=== PATIENT | female | born 1990 | race African-American/Black ===

== ENCOUNTER 2024-05-19 17:50 | Emergency (ER) | payer BC, OTHER ==
[2024-05-19] MEDS ORDERED: NA CHLORIDE 0.9% 1,000 ML ONE (19:30)
[2024-05-19] MEDS ORDERED: FAMOTIDINE 20 MG/2 ML VIAL IV ONE (19:30)
[2024-05-19] MEDS ORDERED: ONDANSETRON 4 MG/2 ML VIAL ONE (19:30)
--- NOTE | 2024-05-19 20:24 | RAD REPORT ---
EXAM DESCRIPTION: US - Abdomen Exam Limited - 05/19/2024 8:10 pm CLINICAL HISTORY: ABD PAIN COMPARISON: <Comparisons> FINDINGS: The gallbladder demonstrates no gallstones. No pericholecystic fluid or gallbladder wall t hickening. The common bile duct is normal measuring 2 mm. The liver demonstrates no findings of intrahepatic biliary dilatation. IMPRESSION: Unremarkable examination.
[2024-05-19 20:31] LABS: Absolute Basophils 0.1 K/uL (0-0.5); Absolute Lymphocytes (CBC) 2.2 K/uL (0.7-4.9); Absolute Monocytes 1.2 K/uL (0.1-1.3); Absolute Neutrophil 8.8 K/uL (1.8-8.0); Basophils % 0.6 % (0-1.3); Eosinophils % 0.4 % (0-4.4); Hematocrit 41.6 % (36.0-45.0); Hemoglobin 13.9 g/dL (12.0-15.0); Lymphocytes % 17.7 % (15.3-44.8); MCH 30.9 pg (27.0-35.0); MCHC 33.5 g/dL (32.0-36.0); MCV 92.3 fL (80-100); MPV 8.6 fL (7.6-11.3); Neutrophils % 71.3 % (41.7-73.7); Platelets 294 thou/uL (152-406); RBC Red Blood Cell Count 4.51 M/uL (3.86-4.86); Red Cell Distribution Width 13.6 % (12.1-15.2)
[2024-05-19 20:48] LABS: Albumin 3.4 g/dL (3.4-5.0); Albumin/Globulin Ratio 0.9 (1.1-1.8); Anion Gap 8.1 mEq/L (5.0-15.0); Bilirubin Total 0.9 mg/dL (0.2-1.0); Potassium 4.1 mEq/L (3.5-5.1); Protein, Total 7.4 g/dL (6.4-8.2)
[2024-05-19 21:24] LABS: Specific Gravity > 1.030 (1.005-1.030)
[2024-05-19 21:31] LABS: Specific Gravity > 1.030 (1.005-1.030); Urine Bacteria None Seen /HPF (<20); Urine Bilirubin NEGATIVE (Negative); Urine Blood 2+ (Negative); Urine Clarity Extremely Turbid (Clear); Urine Color Yellow (Yellow); Urine Crystals Unidentified Few /HPF (None Seen); Urine Culture Reflex Order NOT NEEDED; Urine Glucose NEGATIVE (Negative); Urine Ketones 1+ (Negative); Urine Microscopic Reflex YN ORDER UMIC; Urine Mucus 3+ /HPF (None Seen); Urine Nitrite NEGATIVE (Negative); Urine Protein 1+ (Negative); Urine RBC >50 /HPF (None Seen); Urine Urobilinogen Normal (Normal); Urine WBC <5 /HPF (<5); Urine pH 6.5 (5.0-7.0)
--- NOTE | 2024-05-19 22:00 | EDPHYS ---
Physician Documentation [facility] Name: Jaylon Lockett Age: 34 yrs Sex: Female : 1990 Arrival Date: 05/19/2024 Time: 17:50 Bed 5 Private MD: ED Physician Patrick Cross HPI: 05/19 18:35 This 34 yrs old Black Female presents to ER via Ambulatory with complaints of Abdominal cp Pain. 18:35 The patient presents with abdominal pain mid abdomen. Onset: The symptoms/episode cp began/occurred today. Associated signs and symptoms: Pertinent positives: nausea and vomiting, Pertinent negatives: constipation, diarrhea, fever, vomiting blood. 18:35 The symptoms are described as crampy. cp 18:35 Patient admits to drinking alcohol last night at friend's home and believes alcohol may cp have been old. Historical: - Allergies: 18:19 No Known Allergies; ap3 - PMHx: 18:19 None; ap3 - Immunization history:: Client reports receiving the 2nd dose of the Covid vaccine. - Infectious Disease History:: Denies. - Social history:: Smoking status: Reported history of juuling and/or vaping. Patient uses alcohol. ROS: 18:40 Constitutional: Positive for poor PO intake, Negative for body aches, chills, fever, cp 18:40 Eyes: Negative for injury, pain, redness, and discharge, cp 18:40 Cardiovascular: Negative for chest pain, 18:40 Respiratory: Negative for cough, shortness of breath, 18:40 Abdomen/GI: Positive for nausea and vomiting, anorexia, 18:40 Neuro: Negative for altered mental status, dizziness, headache, weakness, 18:40 All other systems are negative, Exam: 18:45 Constitutional: The patient appears in no acute distress, alert, awake, non-toxic, well cp developed, well nourished, obese, 18:45 Head/Face: Normocephalic, atraumatic. cp 18:45 Eyes: Periorbital structures: appear normal, Conjunctiva: normal, no exudate, no injection, Sclera: no appreciated abnormality, Lids and lashes: appear normal, bilaterally, 18:45 ENT: External ear(s): are unremarkable, Nose: is normal, Mouth: Lips: moist, Oral mucosa: pink and intact, moist, Posterior pharynx: is normal, airway is patent, no erythema, no exudate, 18:45 Chest/axilla: Inspection: normal, 18:45 Cardiovascular: Rate: normal, Rhythm: regular, 18:45 Respiratory: the patient does not display signs of respiratory distress, Respirations: normal, no use of accessory muscles, no retractions, labored breathing, is not present, Breath sounds: are clear throughout, no decreased breath sounds, no stridor, no wheezing, 18:45 Abdomen/GI: Inspection: abdomen appears normal, Bowel sounds: active, all quadrants, Palpation: soft, in all quadrants, nontender, in all quadrants, 18:45 Back: pain, is absent, Vital Signs: 18:18 BP 127 / 76; Pulse 60; Resp 18; Temp 98.8; Pulse Ox 100% ; Weight 104.33 kg; Height 5 ap3 ft. 1 in. ; Pain 5/10; 19:55 BP 127 / 80; Pulse 65; Resp 18; Pulse Ox 100% on R/A; kd4 22:14 BP 105 / 61; Pulse 62; Resp 18; Pulse Ox 100% ; vc1 22:14 BP 105 / 71; Pulse 62; Resp 18; Temp 98.4; Pulse Ox 100% on R/A; Pain 0/10; kd4 18:18 Body Mass Index 43.46 (104.33 kg, 154.94 cm) ap3 18:18 Pain Scale: Adult ap3 22:14 Pain Scale: Adult kd4 MDM: 18:25 Patient medically screened. 19:00 Differential diagnosis: cholecystitis, Cholelithiasis, pancreatitis, Peptic Ulcer cp Disease, Perf. Duodenal Ulcer, Perf. Gastric Ulcer, Ureterolithiasis, urinary tract infection. 22:00 Data reviewed: vital signs, nurses notes, lab test result(s), radiologic studies, cp ultrasound. 22:00 I considered the following discharge prescriptions or medication management in the emergency department Medications were administered in the Emergency Department. See MAR. Counseling: I had a detailed discussion with the patient and/or guardian regarding the historical points, exam findings, and any diagnostic results supporting the discharge/admit diagnosis, lab results, radiology results, to return to the emergency department if symptoms worsen or persist or if there are any questions or concerns that arise at home. Response to treatment: the patient's symptoms have markedly improved after treatment, and as a result, I will discharge patient. 05/19 18:29 Order name: CBC with Diff; Complete Time: 20:46 cp 05/19 20:46 Interpretation: Normal except: WBC 12.40; NEUT A 8.8. cp 05/19 18:29 Order name: CMP; Complete Time: 21:40 cp 05/19 21:40 Interpretation: Normal except: CL 110; GLOB 4.0; A/G 0.9. 05/19 18:29 Order name: Lipase; Complete Time: 21:40 cp 05/19 18:29 Order name: Test, Urine; Complete Time: 21:40 cp 05/19 18:29 Order name: Urinalysis w/ reflexes; Complete Time: 21:40 cp 05/19 21:40 Interpretation: Normal except: [facility] Extremely Turbid; Urine SG > 1.030; UKET 1+; UBLD cp 2+; UPROT 1+; UESTR 25; URBC >50; MUCUS 3+. 05/19 19:27 Order name: US Abdomen Limited: RUQ; Complete Time: 20:46 05/19 20:46 Interpretation: Report reviewed. 05/19 18:29 Order name: IV Saline Lock; Complete Time: 21:43 cp 05/19 18:29 Order name: Labs collected and sent; Complete Time: 21:43 05/19 19:27 Order name: NPO; Complete Time: 21:43 cp 05/19 20:05 Order name: Misc. Order: recollect green and purple top; Complete Time: 21:43 kmf Administered Medications: 19:45 Drug: Ondansetron IVP 4 mg IVP once; over 2 minutes Route: IVP; Site: left femoral; kd4 19:46 Drug: Famotidine IVP 20 mg IVP once; dilute with 10 mL 0.9% NaCl; give over 2 minutes kd4 Route: IVP; Site: left forearm; 19:47 Drug: NS 0.9% IV 1000 ml IV at 1 bolus Per protocol; 1000 mL bolus Route: IV; Rate: 1 kd4 bolus; Site: left forearm; Disposition Summary: 05/19/24 22:00 Discharge Ordered Notes: Location: Home cp Problem: new cp Symptoms: have improved cp Condition: Stable cp Diagnosis - Nausea with vomiting, unspecified cp - Diarrhea, unspecified cp Followup: cp - With: Private Physician - When: As needed - Reason: Worsening of condition Discharge Instructions: - Discharge Summary Sheet cp - Food Choices to Help Relieve Diarrhea, Adult cp - Diarrhea, Adult cp - Nausea and Vomiting, Adult cp Forms: - Medication Reconciliation Form cp - Antibiotic Education cp - Prescription Opioid Use cp - Patient Portal Instructions cp - Leadership Thank You Letter cp Prescriptions: - ondansetron 8 mg Oral Tablet,disintegrating - take 1 tablet ORAL route every 12 hours; 10 tablet; Refills: 0, Product cp Selection Permitted Addendum: 05/21/2024 05:47 I was immediately available for consultation during this patient's visit. I did not e c2 personally see the patient or discuss the patient with the DERRICK. . Signatures: Dispatcher [employer] EDMS Dano Love PA PA cp Prokisch, Amanda, RN RN ap3 Patrick Cross MD MD ec2 Yaquelin Patel [facility] Stone Hirsch RN RN kd4 Corrections: (The following items were deleted from the chart) 05/19 18:30 18:30 CBC+H.LAB.BRZ ordered. EDMS EDMS 18:30 18:30 COMPREHENSIVE METABOLIC PANEL+C.LAB.BRZ ordered. EDMS EDMS 18:30 18:30 LIPASE+C.LAB.BRZ ordered. EDMS EDMS 18:30 18:30 Test, Urine+UC.LAB.BRZ ordered. EDMS EDMS 18:30 18:30 Urinalysis+U.LAB.BRZ ordered. EDMS EDMS
--- NOTE | 2024-05-19 22:00 | ER ---
Nurse's Notes [facility] Name: Jaylon Lockett Age: 34 yrs Sex: Female : 1990 Arrival Date: 05/19/2024 Time: 17:50 Bed 5 Private MD: Diagnosis: Nausea with vomiting, unspecified;Diarrhea, unspecified Presentation: 05/19 18:18 Chief complaint: Patient states: she believes she drank some bad alcohol last night ap3 because she has been vomiting "yellow stuff today" patient also reports intermittent abdominal cramping. Coronavirus screen: At this time, the client does not indicate any symptoms associated with coronavirus-19. Ebola Screen: No symptoms or risks identified at this time. Initial Sepsis Screen: Does the patient meet any 2 criteria? No. Patient's initial sepsis screen is negative. Does the patient have a suspected source of infection? No. Patient's initial sepsis screen is negative. Risk Assessment: Do you want to hurt yourself or someone else? Patient reports no desire to harm self or others. Onset of symptoms was May 19, 2024. 18:18 Method Of Arrival: Ambulatory ap3 18:18 Acuity: WIL 3 ap3 Triage Assessment: 18:20 General: Appears in no apparent distress. Behavior is calm, cooperative, appropriate ap3 for age. Pain: Complains of pain in abdomen Pain currently is 5 out of 10 on a pain scale. Quality of pain is described as crampy, Is intermittent. Neuro: Level of Consciousness is awake, alert, obeys commands, Oriented to person, place, time, situation, Appropriate for age. Cardiovascular: Patient's skin is warm and dry. Respiratory: Airway is patent Respiratory effort is even, unlabored, Respiratory pattern is regular, symmetrical. GI: Reports lower abdominal pain, upper abdominal pain, cramping, nausea, vomiting. Historical: - Allergies: 18:19 No Known Allergies; ap3 - PMHx: 18:19 None; ap3 - Immunization history:: Client reports receiving the 2nd dose of the Covid vaccine. - Infectious Disease History:: Denies. - Social history:: Smoking status: Reported history of juuling and/or vaping. Patient uses alcohol. Screenin:20 [facility] ED Fall Risk Assessment (Adult) History of falling in the last 3 months, ap3 including since admission No falls in past 3 months (0 pts) Confusion or Disorientation No (0 pts) Intoxicated or Sedated No (0 pts) Impaired Gait No (0 pts) Mobility Assist Device Used No (0 pt) Altered Elimination No (0 pt) Score/Fall Risk Level 0 - 2 = Low Risk Oriented to surroundings, Maintained a safe environment, Educated pt \\T\\ family on fall prevention, incl call for assistance when getting out of bed, Assessed \\T\\ reinforced patient's understanding of fall precautions, Provided non-skid footwear, Hourly rounding (assess needs \\T\\ fall precautionary measures) done, Used ambulatory aids as needed (educated on \\T\\ assisted with), Used gait belt as appropriate. Abuse screen: Denies threats or abuse. Nutritional screening: No deficits noted. Tuberculosis screening: No symptoms or risk factors identified. Assessment: 19:25 General: Appears in no apparent distress. Behavior is calm, cooperative. Pain: Denies al5 pain. Neuro: Level of Consciousness is awake, alert, obeys commands, Oriented to person, place, time, situation, Gait is steady, Speech is normal. Cardiovascular: Patient's skin is warm and dry. Respiratory: Airway is patent Trachea midline. GI: Abdomen is no distention, abdomen of normal size. not ascultated Abd is soft and non tender X 4 quads. Derm: Skin is intact. Vital Signs: 18:18 BP 127 / 76; Pulse 60; Resp 18; Temp 98.8; Pulse Ox 100% ; Weight 104.33 kg; Height 5 ap3 ft. 1 in. ; Pain 5/10; 19:55 BP 127 / 80; Pulse 65; Resp 18; Pulse Ox 100% on R/A; kd4 22:14 BP 105 / 61; Pulse 62; Resp 18; Pulse Ox 100% ; vc1 22:14 BP 105 / 71; Pulse 62; Resp 18; Temp 98.4; Pulse Ox 100% on R/A; Pain 0/10; kd4 18:18 Body Mass Index 43.46 (104.33 kg, 154.94 cm) ap3 18:18 Pain Scale: Adult ap3 22:14 Pain Scale: Adult kd4 ED Course: 17:55 Patient arrived in ED. mg5 17:58 Dano Love PA is PHCP. cp 17:58 Patrick Cross MD is Attending Physician. cp 18:19 Triage completed. ap3 18:20 Arm band placed on left wrist. ap3 19:53 Initial lab(s) drawn, by me, sent to lab. Inserted saline lock: 22 gauge in left kd4 forearm, using aseptic technique. Blood collected. 20:05 Notified primary nurse of lab recollect. kmf 20:12 US Abdomen Limited: RUQ In Process Unspecified. EDMS 22:12 No provider procedures requiring assistance completed. IV discontinued, intact, vc1 bleeding controlled, No redness/swelling at site. Pressure dressing applied. 22:13 Provided Education on: zofran. vc1 Administered Medications: 19:45 Drug: Ondansetron IVP 4 mg IVP once; over 2 minutes Route: IVP; Site: left femoral; kd4 19:46 Drug: Famotidine IVP 20 mg IVP once; dilute with 10 mL 0.9% NaCl; give over 2 minutes kd4 Route: IVP; Site: left forearm; 19:47 Drug: NS 0.9% IV 1000 ml IV at 1 bolus Per protocol; 1000 mL bolus Route: IV; Rate: 1 kd4 bolus; Site: left forearm; Medication: 22:13 VIS not applicable for this client. vc1 Outcome: 22:00 Discharge ordered by MD. cp 22:13 Discharged to home ambulatory, with family, vc1 22:13 Condition: good 22:13 Discharge instructions given to patient, Instructed on discharge instructions, follow up and referral plans. medication usage, Demonstrated understanding of instructions, follow-up care, medications, Prescriptions given X 1, 22:15 Patient left the ED. vc1 Signatures: Dispatcher [employer] EDWV Dano Love PA PA cp Prokisch, Amanda, RN RN ap3 Yaima Rodrigues RN RN vc1 Kimberly Del Rosario mg5 Yaquelin Patel formerly [facility] Stone Hirsch RN RN kd4 Teri Key, RN RN al5
[2024-05-19 23:04] VITALS: BP 105/61; TEMP 98.8; O2SAT 100
== END 2024-05-19 22:15 | disposition home or self-care (01) ==
LOC: ER 17:50
DX: R11.2 Nausea with vomiting, unspecified (principal); R19.7 Diarrhea, unspecified
CPT/HCPCS: 85025; 81001; 36415; 81025; 83690; 80053; 76705; 99284; J2405; J7030